=== PATIENT | male | born 1980 | race Caucasian/White ===

== ENCOUNTER 2018-11-24 11:26 | Emergency (ER) | payer SELFPAY ==
[2018-11-24 11:40] VITALS: BP 116/73; PULSE 60; TEMP 97.9; BMI 36.7
--- NOTE | 2018-11-24 12:25 | PDOC ---
History of Present Illness - General Chief Complaint: Ingrown toenail Stated Complaint: Injury Time Seen by Provider: 11/24/18 12:17 History Source: Patient Exam Limitations: No Limitations - History of Present Illness Initial Comments: CHIEF COMPLAINT: 38 y/o afebrile male c/o right 4th digit issue x 6 months. HISTORY OF PRESENT ILLNESS: The patient states he has been putting over the counter cream on the area. It's now a hard, swollen area. He denies pain, streaking, fever. Vital signs on arrival are within normal limits REVIEW OF SYSTEMS: GENERAL/CONSTITUTIONAL: No fever MUSCULOSKELETAL: +right 4th digit issue. No neck or back pain. SKIN: No rash or easy bruising. NEUROLOGIC: No headache, vertigo, loss of consciousness, or loss of sensation. PHYSICAL EXAM: VITAL_SIGNS: within normal limits GENERAL_APPEARANCE: alert, cooperative, mild obvious discomfort. MENTAL_STATUS: speech clear, oriented X 3, responds appropriately to questions. NEURO: motor intact and sensory intact in injured extremity. EXTREMITIES: Hard, abrasive granuloma to medial aspect of right 4th digit. No streaking, erythema or TTP. SKIN: warm, dry, good color. Past History - Past Medical History Allergies/Adverse Reactions: Allergies Allergy/AdvReac Type Severity Reaction Status Date / Time No Known Allergies Allergy Verified 11/24/18 11:40 COPD: No - Suicide/Smoking/Psychosocial Hx Smoking History: Never smoked *Physical Exam - Vital Signs Last Vital Signs Temp Pulse Resp BP Pulse Ox 97.9 F 60 18 116/73 98 11/24/18 11:38 11/24/18 11:38 11/24/18 11:38 11/24/18 11:38 11/24/18 11:38 Moderate Sedation - Procedure Monitoring Vital Signs: Procedure Monitoring Vital Signs Temperature 97.9 F 11/24/18 11:38 Pulse Rate 60 11/24/18 11:38 Respiratory Rate 18 11/24/18 11:38 Blood Pressure 116/73 11/24/18 11:38 O2 Sat by Pulse Oximetry (%) 98 11/24/18 11:38 Medical Decision Making - Medical Decision Making A/P: 38 y/o male with pyogenic granuloma to right 4th digit. Will provide him with plastic surgery referral. Instructed him that's the only way to have it removed. The patient verbalizes understanding of all instructions, has no further questions and is awaiting discharge. *DC/Admit/Observation/Transfer Diagnosis at time of Disposition: Pyogenic granuloma of skin - Discharge Dispostion Disposition: HOME Condition at time of disposition: Good - Referrals Referrals: Steve Rob MD [Staff Physician] - - Patient Instructions Additional Instructions: Discharge Instructions: -You have what's called a pyogenic granuloma of your finger -The only thing that can be done to get rid of it is surgery -Please call Dr. Rob in 3 days to schedule a follow up appointment -Keep the area covered while you are working. Instrucciones de descarga: -Tienes lo que se llama un granuloma pigeno de tu dedo. -Lo cass que se puede hacer para deshacerse de l es la ciruga. -Por favor llame al Dr. Rob en 3 carrasco para programar ethan isaac de seguimiento -Mantenga el yehuda cubierta mientras trabaja. - Post Discharge Activity
== END 2018-11-24 12:40 | disposition home or self-care (01) ==
LOC: JERFT 11:26
DX: L98.0 Pyogenic granuloma (principal)
CPT/HCPCS: 99281-25

== ENCOUNTER 2018-11-28 14:31 | Emergency (ER) | payer SELFPAY ==
[2018-11-28 15:06] VITALS: BP 118/66; PULSE 71; TEMP 97.9; BMI 35.2
--- NOTE | 2018-11-28 15:07 | PDOC ---
Rapid Medical Evaluation Time Seen by Provider: 11/28/18 15:02 Medical Evaluation: Allergies Allergy/AdvReac Type Severity Reaction Status Date / Time No Known Allergies Allergy Verified 11/28/18 15:02 11/28/18 15:04 I have performed a brief in-person evaluation of this patient. The patient presents with a chief complaint of: Here to see surgery for pyogenic granuloma to R 4th digit that was dx 11/24 in ED. Given referral to Dr Rob. States he called office and was told to come to ED (2/2 possible insurance issue) as MD currently in hospital. No sig pain, /c currently Pertinent physical exam findings:defer to ED I have ordered the following:nothing The patient will proceed to the ED for further evaluation. Discharge Disposition - Diagnosis Pyogenic granuloma of skin - Referrals - Patient Instructions - Post Discharge Activity
--- NOTE | 2018-11-28 15:56 | PDOC ---
History of Present Illness - General Chief Complaint: Abscess Boil Stated Complaint: PCP SENT Time Seen by Provider: 11/28/18 15:02 History Source: Patient - History of Present Illness Initial Comments: 11/28/18 15:51 38 year old male seen in the ED on 11/24 with wart like granuloma to left 4th digit for 6 month. patient reports that he has been cutting the granulous tissue and it grows back. denies pain tot the site Past History - Past Medical History Allergies/Adverse Reactions: Allergies Allergy/AdvReac Type Severity Reaction Status Date / Time No Known Allergies Allergy Verified 11/28/18 15:02 Home Medications: Ambulatory Orders NK [No Known Home Medication] 11/24/18 COPD: No Other medical history: DENIES - Suicide/Smoking/Psychosocial Hx Smoking History: Never smoked Review of Systems - Review of Systems Able to Perform ROS?: Yes Is the patient limited Wolof proficient: No Musculoskeletal: Yes: Other (finger pain) *Physical Exam - Vital Signs Last Vital Signs Temp Pulse Resp BP Pulse Ox 97.9 F 71 19 118/66 98 11/28/18 15:02 11/28/18 15:02 11/28/18 15:02 11/28/18 15:02 11/28/18 15:02 - Physical Exam General Appearance: Yes: Appropriately Dressed Musculoskeletal: positive: Normal Inspection (no streaking) Extremity: positive: Other (granuoulus tissue to 4th finger tip appearance of a paronychia without redness or drainage) Moderate Sedation - Procedure Monitoring Vital Signs: Procedure Monitoring Vital Signs Temperature 97.9 F 11/28/18 15:02 Pulse Rate 71 11/28/18 15:02 Respiratory Rate 19 11/28/18 15:02 Blood Pressure 118/66 11/28/18 15:02 O2 Sat by Pulse Oximetry (%) 98 11/28/18 15:02 *DC/Admit/Observation/Transfer Diagnosis at time of Disposition: Pyogenic granuloma of skin, Viral wart on finger - Discharge Dispostion Disposition: HOME - Referrals Referrals: Steve Rob MD [Primary Care Provider] - Mary Serrano MD [Staff Physician] - Call tomorrow [facility] [Outside] - Patient Instructions Printed Discharge Instructions: Warts (Alternative Therapy) Additional Instructions: you may soak the finger there is no sign of infection now. 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 - Post Discharge Activity Forms/Work/School Notes: Back to Work
== END 2018-11-28 16:11 | disposition home or self-care (01) ==
LOC: JERFT 14:31
DX: L98.0 Pyogenic granuloma (principal); B07.8 Other viral warts
CPT/HCPCS: 99281-25